=== PATIENT | female | born 1995 | race Asian ===

== ENCOUNTER 2017-12-26 17:06 | Emergency (ER) | payer MEDICAID ==
[~2017-12-26] VITALS: Ht 167.6 cm; Wt 49.9 kg
[2017-12-26] MEDS ORDERED: Lidocaine 2% Visc 15ml soln ORAL ONE (17:30)
--- NOTE | 2017-12-26 17:30 | Emergency Room Report ---
History of Present Illness General Chief Complaint: Abdominal Pain Source: Patient Present Illness HPI Patient is a 22-year-old female who presented after increased vomiting. Patient had recently had a tonsillectomy performed at [facility] by Dr. Latif. Patient had the moderate pain. She reported having taken Tylenol with codeine. She reported having multiple episodes of emesis subsequently. Patient denies any abdominal pain. The patient denies any fever Allergies: Coded Allergies: [place]yster (Verified Allergy, Unknown, 12/26/17) Patient History Last Menstrual Period: 12/22/17 Now: No Reviewed Nursing Documentation: PMH: Agreed; PSxH: Agreed Nursing Documentation-PMH Past Medical History: No History, Except For Review of Systems All Other Systems: negative except mentioned in HPI Physical Exam Vital Signs Date Time Temp Pulse Resp B/P (MAP) Pulse Ox O2 Delivery O2 Flow Rate FiO2 12/26/17 17:11 97.9 77 18 111/72 91 Room Air 97.9 Sp02 EP Interpretation: reviewed, normal General Appearance: normal inspection, well appearing, no apparent distress, alert Head: atraumatic ENT: normal ENT inspection, hearing grossly normal, other - post surgical changes, no active bleeding Neck: normal inspection, full range of motion, supple, no bony tend Respiratory: normal inspection, lungs clear, normal breath sounds, no respiratory distress, no retraction, no wheezing Cardiovascular #1: regular rate, rhythm, no edema Gastrointestinal: normal inspection, normal bowel sounds, non tender, soft, no guarding, no hernia Genitourinary: no CVA tenderness Musculoskeletal: normal inspection, back normal, normal range of motion Neurologic: normal inspection, alert, responsive, speech normal Psychiatric: normal inspection, judgement/insight normal, mood/affect normal Skin: normal inspection, normal color, no rash Medical Decision Making Diagnostic Impression: Primary Impression: Post-tonsillectomy pain Additional Impressions: Postoperative vomiting Medication reaction ER Course Patient presented for vomiting after surgery. The differential diagnosis included was not limited to anesthesia reaction, medication reaction, esophagitis, bowel obstruction among others. Patient has a benign exam and does not appear to require any further imaging or laboratory testing at this time. The patient was given Zofran with improvement her symptoms. She was also given viscous lidocaine. Patient was given prescription for [place] as well as viscous lidocaine after discussion with the patient surgeon. The patient was advised not to take NSAIDs or aspirin. Patient is advised to follow-up with her surgeon if she had any worsening of condition. The patient is advised to return if she had any concerns. Last Vital Signs Date Time Temp Pulse Resp B/P (MAP) Pulse Ox O2 Delivery O2 Flow Rate FiO2 12/26/17 17:11 97.9 77 18 111/72 91 Room Air 97.9 Status: improved Disposition: HOME, SELF-CARE Condition: Stable Scripts Ondansetron Odt* (ZOFRAN ODT*) 8 Mg Tab.rapdis 8 MG ORAL Q6H PRN for Nausea & Vomiting, #30 TAB Prov: Kehinde Schroeder MD 12/26/17 Hydrocodone Bit/Acetaminophen 5-325* (NORCO 5-325*) 1 Each Tablet 1 TAB ORAL Q6H PRN for For Pain, #20 TAB 0 Refills Prov: Kehinde Schroeder MD 12/26/17 Lidocaine HCl (Lidocaine HCl Viscous) 100 Ml Solution 20 ML MM EVERY 4 HOURS, #200 MG Prov: Kehinde Schroeder MD 12/26/17 Kehinde Schroeder MD Dec 26, 2017 17:30
[2017-12-26 17:32] VITALS: BP 111/72
[2017-12-26] MEDS ORDERED: LIDOCAINE20 MG/1 M1 MM (18:15)
[2017-12-26] MEDS ORDERED: NORCO 5-325 TA1 EACH ORAL (18:16)
[2017-12-26] MEDS ORDERED: ZOFRAN ODT8 MG ORAL (18:29)
[2017-12-26 18:31] VITALS: BP 111/72
== END 2017-12-26 18:36 | disposition home or self-care (01) ==
LOC: EMR 17:30
DX: G89.18 Other acute postprocedural pain (principal); R11.10 Vomiting, unspecified; T50.995A Adverse effect of other drugs, medicaments and biological substances, initial encounter; Y92.9 Unspecified place or not applicable
CPT/HCPCS: 99284